=== PATIENT | male | born 1955 | race African-American/Black ===

== ENCOUNTER 2019-04-27 08:55 | Inpatient (IN) | payer SELFPAY ==
[2019-04-27 09:16] VITALS: BMI 28.2
[2019-04-27 10:36] LABS: BASO % 0.8 % (0-2.0); EOS % 4.7 % (0-4.5); HEMOGLOBIN 15.6 GM/dL (11.7-16.9); LYMPH % 24.3 % (8-40); MCH 29.8 pg (25.7-33.7); MCHC 33.2 g/dl (32.0-35.9); MEAN CELL VOLUME 89.9 fl (80-96); MEAN PLT VOLUME 9.2 fl (7.5-11.1); MONO % 10.4 % (3.8-10.2); NEUT % 59.8 % (42.8-82.8); PLATELET COUNT 143 K/MM3 (134-434); RBC 5.22 M/mm3 (4.00-5.60); RDW 14.8 % (11.9-15.9); WHITE BLOOD COUNT 5.9 K/mm3 (4.0-10.0)
[2019-04-27] MEDS: SODIUM CHLORIDE 1,000 ML IV SCH (10:38)
[2019-04-27 11:05] LABS: ALBUMIN 3.8 g/dl (3.4-5.0); BILIRUBIN,TOTAL 0.4 mg/dL (0.2-1); BLOOD UREA NITROGEN 12.6 mg/dL (7-18); CALCIUM 9.3 mg/dL (8.5-10.1); CREATININE 1.2 mg/dL (0.55-1.3); POTASSIUM 3.8 mmol/L (3.5-5.1); TOT PROT 7.8 g/dl (6.4-8.2)
[2019-04-27 11:31] LABS: INR 0.99 (0.83-1.09); PROTHROMBIN TIME (PATIENT) 11.7 SEC (9.7-13.0)
[2019-04-27 11:36] LABS: EPI CELLS 1.7 /HPF (0-5/HPF); HYALINE CASTS 3 /lpf (0-8); URINE APPEARANCE CLEAR; URINE BACTERIA 36.8 /hpf (NEGATIVE); URINE BILIRUBIN NEGATIVE (NEGATIVE); URINE COLOR YELLOW; URINE GLUCOSE (UA) NEGATIVE (NEGATIVE); URINE KETONE NEGATIVE (NEGATIVE); URINE LEUK ESTERASE 2+ (NEGATIVE); URINE NITRITE NEGATIVE (NEGATIVE); URINE PROTEIN NEGATIVE (NEGATIVE); URINE RBC 1 /hpf (0-4); URINE UROBILINOGEN 0.2 mg/dL (0.2-1.0); URINE WBC 20 /hpf (0-5)
[2019-04-27] MEDS ORDERED: CEFTRIAXONE 1,000 MG in DEXTROSE 5%-WATER - 50 ML IVPB ONE (11:48)
[2019-04-27] MEDS ORDERED: CEFTRIAXONE 1 GM/50 ML BAG ONE (12:00)
[2019-04-27 12:10] LABS: COCAINE, UR NEGATIVE ng/ml (CUTOFF=300); METHADONE, UR NEGATIVE ng/ml (CUTOFF=300); OPIATES, URI NEGATIVE ng/ml (CUTOFF=300); PHENCYCLIDINE,URINE NEGATIVE ng/ml (CUTOFF=25); URINE AMPHETAMINES NEGATIVE ng/ml (CUTOFF=500); URINE BARBITURATES NEGATIVE ng/ml (CUTOFF=200); URINE BENZODIAZEPINES NEGATIVE ng/ml (CUTOFF=200)
[2019-04-27] MEDS ORDERED: ATORVASTATIN CA 80 MG TABLET (FP) PO ONE (13:06)
[2019-04-27] MEDS ORDERED: ASPIRIN 325 MG TABLET PO ONE (13:06)
--- NOTE | 2019-04-27 13:21 | EKG ---
Test Reason : Blood Pressure : / mmHG Vent. Rate : 041 BPM Atrial Rate : 041 BPM P-R Int : 234 ms QRS Dur : 094 ms QT Int : 456 ms P-R-T Axes : 015 050 059 degrees QTc Int : 376 ms MARKED SINUS BRADYCARDIA WITH 1ST DEGREE A-V BLOCK MODERATE VOLTAGE CRITERIA FOR LVH, MAY BE NORMAL VARIANT ABNORMAL ECG NO PREVIOUS ECGS AVAILABLE Confirmed by TIA BENNETT MD ([id number]) on 04/27/2019 1:20:47 PM Referred By: Confirmed By:TIA BENNETT MD
--- NOTE | 2019-04-27 13:33 | PDOC ---
Documentation entered by Radha Caceres SCRIBE, acting as scribe for Elise Tao MD. Elise Tao MD: This documentation has been prepared by the Nicki vitale Adrianna, SCRIBE, under my direction and personally reviewed by me in its entirety. I confirm that the documentation accurately reflects all work, treatment, procedures, and medical decision making performed by me. History of Present Illness - General Chief Complaint: Lightheaded Stated Complaint: WEAKNESS Time Seen by Provider: 04/27/19 09:33 - History of Present Illness Initial Comments: The patient is a 64 year old male, with no significant PMH, who presents to the ED for evaluation of weakness for 4 days. Patient notes that since Wednesday, he reports sudden onset weakness and not feeling like himself. Patient notes he feels as if its hard to walk, and he can no longer walk fast. He states he needs to walk with a wide stance to feel steady, as he is wobbly and feels like he is going to fall. He endorses some dizziness, noting that he feels off. He denies any recent falls or hitting his head. Patient denies any history of similar symptoms, and notes he has not seen a primary doctor in over 10 years since he is healthy. Denies fever, chills, chest pain, SOB, nausea, vomit, diarrhea, constipation, dysuria, hematuria, abdominal pain, headache, change in vision, blurred vision, slurred speech. Allergies: NKA, NKDA Surgical History: None reported Social History: Current everyday smoker. PCP: None (has not seen a doctor in over 10 years) Past History - Past Medical History Allergies/Adverse Reactions: Allergies Allergy/AdvReac Type Severity Reaction Status Date / Time No Known Allergies Allergy Verified 04/27/19 09:15 Home Medications: Ambulatory Orders NK [No Known Home Medication] 04/27/19 COPD: No - Immunization History Immunization Up to Date: No - Psycho Social/Smoking Cessation Hx Smoking History: Current every day smoker Have you smoked in the past 12 months: Yes Number of Cigarettes Smoked Daily: 3 Information on smoking cessation initiated: No Hx Alcohol Use: No Drug/Substance Use Hx: No Review of Systems - Review of Systems Comments:: GENERAL/CONSTITUTIONAL: +Weakness. +Not feeling like himself. No fever or chills. HEAD, EYES, EARS, NOSE AND THROAT: No change in vision. No ear pain or discharge. No sore throat. GASTROINTESTINAL: No nausea, vomiting, diarrhea or constipation. GENITOURINARY: No dysuria, frequency, or change in urination. CARDIOVASCULAR: No chest pain or shortness of breath. RESPIRATORY: No cough, wheezing, or hemoptysis. MUSCULOSKELETAL: No joint or muscle swelling or pain. No neck or back pain. SKIN: No rash NEUROLOGIC: +Wobbly gait. +Hard to walk, and feels as if he is going to fall. +Dizziness. No headache, loss of consciousness, or change in strength/sensation. ENDOCRINE: No increased thirst. No abnormal weight change. HEMATOLOGIC/LYMPHATIC: No anemia, easy bleeding, or history of blood clots. ALLERGIC/IMMUNOLOGIC: No hives or skin allergy. *Physical Exam - Vital Signs Last Vital Signs Temp Pulse Resp BP Pulse Ox 98.4 F 55 L 16 129/81 97 04/27/19 09:13 04/27/19 09:13 04/27/19 09:13 04/27/19 09:13 04/27/19 09:13 - Physical Exam Comments: GENERAL: Awake, alert, and fully oriented, in no acute distress HEAD: No signs of trauma EYES: PERRLA, EOMI, sclera anicteric, conjunctiva clear ENT: Auricles normal inspection, hearing grossly normal, nares patent, oropharynx clear without exudates. Moist mucosa NECK: Normal ROM, supple, no lymphadenopathy, JVD, or masses LUNGS: Breath sounds equal, clear to auscultation bilaterally. No wheezes, and no crackles HEART: +Bradycardic but regular to the 50s, normal S1 and S2, no murmurs, rubs or gallops ABDOMEN: Soft, nontender, normoactive bowel sounds. No guarding, no rebound. No masses EXTREMITIES: Normal range of motion, no edema. No clubbing or cyanosis. No cords , erythema, or tenderness BACK: No midline spinal tenderness in cervical/thoracic/lumbar region NEUROLOGICAL: +Wide based ataxic gait. Normal speech, cranial nerves intact, negative pronator drift, 5/5 strength in all 4 extremities, normal sensation to light touch in all 4 extremities, normal reflexes and tone SKIN: Warm, Dry, normal turgor, no rashes or lesions noted. ED Treatment Course - LABORATORY CBC & Chemistry Diagram: 04/27/19 10:24 04/27/19 10:24 - RADIOLOGY Radiology Studies Ordered: Category Date Time Status HEAD CT (STROKE) [CT] Stat CT Scan 04/27/19 09:53 Ordered Radiograph Interpretation: EXAM#: TYPE/EXAM: RESULT: [id number] CT/HEAD CT (STROKE) Cranial CT without contrast Clinical information: evaluate for CVA IMPRESSION: No CT evidence of acute intracranial pathology. Reported By: Que Orozco MD 04/27/19 12:10 - Consult/PCP Case discussed with consulting physician: Juma Jauregui (12:31pm- neuro consult ) Medical Decision Making - Medical Decision Making 04/27/19 10:06 64yo M denies PMH but has not seen PMD in many years presents to the ED with ataxia Vitals unremarkable Exam with wide based ataxic gait NIHSS 2, but pt is out of TPA window Plan for stroke w/u, consider admission for MRI if CTH neg 04/27/19 13:[address] Jauregui, recommends MRI w/o contrast, asa 325, lipitor 80 which has been ordered Case discussed with Dr. Calderon, pt accepted for admission to Dr. Melchor's service Case discussed in detail with admitting physician including history, physical exam and ancillary studies. Admitting physician has assumed care for the patient, will follow all pending diagnostics and will complete the evaluation and treatment. Discharge - Discharge Information Problems reviewed: Yes Clinical Impression/Diagnosis: Ataxia Condition: Stable - Follow up/Referral - Patient Discharge Instructions - Post Discharge Activity NIH Stroke Scale - Last Known Well Date/Time & Onset Date Last Known Well: 04/23/19 - Initial Evaluation Level of consciousness: Alert Ask patient the month and their age: Answers both correctly Ask patient to open & close eyes; make fist and let go: Obeys both correctly Best gaze (horizontal eye movement): Normal Visual field testing: No visual field loss Facial paresis (Show teeth/raise eyebrows/close eyes tight): Normal symmetrical movement Motor Function: Left Arm: Normal Motor Function: Right Arm: Normal (extends arm 90 (or 45) degrees for 10 seconds without drift Motor Function: Left Leg: Normal (extends leg 30 degrees for 5 seconds without drift) Motor Function: Right Leg: Normal (extends leg 30 degrees for 5 seconds without drift) Limb Ataxia: Present in two limbs Sensory(Use pinprick test arms,legs,trunk,face/side to side): Normal Best language (Describe picture, name items, read sentences): No Aphasia Dysarthria (read several words): Normal articulation Extinction and Inattention: No abnormality - Total Score NIH Stroke Scale Score: 2
[2019-04-27] MEDS ORDERED: HEPARIN NA (PORCINE) 5,000 UNITS/ML 1ML VIAL SQ SCH (13:45)
--- NOTE | 2019-04-27 13:50 | HP ---
CHIEF COMPLAINT: dizziness PCP: None HISTORY OF PRESENT ILLNESS: Mr. Huston is a 64 year old man with no reported past medical history. He presented to the ED complaining of 4 days of new onset dizziness. The patient states that he walks 25minutes per day to and from work. About 4 days ago he noticed he was becoming dizzy while walking to work. He stated he felt the world was spinning around him and felt like he was going to fall, but denied any blacking out of vision, falls, or loss of consciousness. The patient states his gait was different when he felt dizzy because he had to walk more carefully so as not to fall but denied any change in sensation in his feet. The patient endorsed feeling nauseated but denied vomiting, sweating, chest palpitations, feeling like his heart beat was too slow, chest pains, or shortness of breath. The patient denied feeling dizzy when changing positions or going from sitting to standing. The patient denied starting any new medications. In the ED the patient was found to have elevated cholesterol levels and an elevated creatinine kinase. The patient denied doing any new or strenuous activity. The UA had 1+RBCs 20 WBCs and 2+ leuk esterase. The patient denied any urinary symptoms including burning with urination or increased frequency. The patient also had a head CT in the ED which did not show any acute pathology. ER course was notable for: (1) EKG with sinus bradycardia (rate 41), 1st degree heart block, [id number] (2) NIHSS 2 (3) Elevated cholesterol (205), LDL (102), creatinine kinase 1763, and an UA with 20 wbcs and +Leuk Esterase Recent Travel: denies PAST MEDICAL HISTORY: denies having any medical problems PAST SURGICAL HISTORY: none reported Social History: Smokin cigarettes per day for >20 years Alcohol: 2 12oz beers per day Drugs: marijuana use daily Allergies No Known Allergies Allergy (Verified 04/27/19 09:15) HOME MEDICATIONS: Home Medications Medication Instructions Recorded NK [No Known Home Medication] 04/27/19 REVIEW OF SYSTEMS CONSTITUTIONAL: dizziness only when walking Absent: fever, chills, diaphoresis, generalized weakness, malaise, loss of appetite, weight change HEENT: world spinning when he walks Absent: rhinorrhea, nasal congestion, throat pain, throat swelling, difficulty swallowing, mouth swelling, ear pain, eye pain, visual changes CARDIOVASCULAR: Absent: chest pain, syncope, palpitations, irregular heart rate, lightheadedness , peripheral edema RESPIRATORY: Absent: cough, shortness of breath, dyspnea with exertion, orthopnea, wheezing, stridor, hemoptysis GASTROINTESTINAL: Absent: abdominal pain, abdominal distension, nausea, vomiting, diarrhea, constipation, melena, hematochezia GENITOURINARY: Absent: dysuria, frequency, urgency, hesitancy, hematuria, flank pain, genital pain MUSCULOSKELETAL: Absent: myalgia, arthralgia, joint swelling, back pain, neck pain SKIN: Absent: rash, itching, pallor HEMATOLOGIC/IMMUNOLOGIC: Absent: easy bleeding, easy bruising, lymphadenopathy, frequent infections ENDOCRINE: Absent: unexplained weight gain, unexplained weight loss, heat intolerance, cold intolerance NEUROLOGIC: dizziness, unsteady gait Absent: headache, focal weakness or paresthesias, seizure, mental status changes , bladder or bowel incontinence PSYCHIATRIC: Absent: anxiety, depression, suicidal or homicidal ideation, hallucinations. PHYSICAL EXAMINATION Vital Signs - 24 hr 04/27/19 04/27/19 04/27/19 09:13 12:10 12:22 Temperature 98.4 F Pulse Rate 55 L Pulse Rate [ 40 L Apical] Respiratory 16 20 Rate Blood Pressure 129/81 Blood Pressure 152/84 [Left Arm] O2 Sat by Pulse 97 100 97 Oximetry (%) GENERAL: Awake, alert, and fully oriented, in no acute distress. NIHSS 0 HEAD: Normal with no signs of trauma. EYES: Pupils equal, round and reactive to light, extraocular movements intact, sclera anicteric, conjunctiva clear. No lid lag. No nystagmus EARS, NOSE, THROAT: Ears normal, nares patent, oropharynx clear without exudates. Moist mucous membranes. NECK: Normal range of motion, supple without lymphadenopathy, JVD, or masses. LUNGS: Breath sounds equal, clear to auscultation bilaterally. No wheezes, and no crackles. No accessory muscle use. HEART/ chest: Regular rhythm, bradycardic, normal S1 and S2 without murmur, rub or gallop. Asymmetry of pectoralis muscle with crease on R side. ABDOMEN: Soft, nontender, not distended, normoactive bowel sounds, no guarding, no rebound, no masses. MUSCULOSKELETAL: Normal range of motion at all joints. No bony deformities or tenderness. No CVA tenderness. Large, fixed, smooth and soft soft tissue mass on L shoulder, patient report's its been there many years. UPPER EXTREMITIES: 2+ pulses, warm, well-perfused. No cyanosis. No clubbing. No peripheral edema. Sensation intact bilaterally, 5/5 strength. LOWER EXTREMITIES: 2+ pulses, warm, well-perfused. No calf tenderness. No peripheral edema. Sensation intcact bilaterally, 5/5 strength. NEUROLOGICAL: Cranial nerves II-XII intact. Normal speech. Normal gait. Patient denied dizziness while walking in ED, coordination while getting out of bed and walking was good. Crystal hallpike maneuver was negative and no nystagmus present. PSYCHIATRIC: Cooperative. Good eye contact. Appropriate mood and affect. SKIN: Warm, dry, normal turgor, no rashes or lesions noted, normal capillary refill. Laboratory Results - last 24 hr 04/27/19 04/27/19 04/27/19 10:24 10:24 10:24 WBC 5.9 RBC 5.22 Hgb 15.6 Hct 47.0 MCV 89.9 MCH 29.8 MCHC 33.2 RDW 14.8 Plt Count 143 MPV 9.2 Absolute Neuts (auto) 3.5 Neutrophils % 59.8 Lymphocytes % 24.3 Monocytes % 10.4 H Eosinophils % 4.7 H Basophils % 0.8 Nucleated RBC % 0 PT with INR INR Sodium 137 Potassium 3.8 Chloride 102 Carbon Dioxide 32 Anion Gap 4 L BUN 12.6 Creatinine 1.2 Est GFR (CKD-EPI)AfAm 74.14 Est GFR (CKD-EPI)NonAf 63.97 Random Glucose 94 Calcium 9.3 Total Bilirubin 0.4 AST 60 H ALT 30 Alkaline Phosphatase 69 Creatine Kinase 1763 H Creatine Kinase Index 0.1 CK-MB (CK-2) 2.9 Troponin I < 0.02 Total Protein 7.8 Albumin 3.8 Triglycerides 50 Cholesterol 205 H Total LDL Cholesterol HDL Cholesterol Urine Color Urine Appearance Urine pH Ur Specific [place] Urine Protein Urine Glucose (UA) Urine Ketones Urine Blood Urine Nitrite Urine Bilirubin Urine Urobilinogen Ur Leukocyte Esterase Urine WBC (Auto) Urine RBC (Auto) Urine Casts (Auto) U Epithel Cells (Auto) Urine Bacteria (Auto) Opiates Screen Methadone Screen Barbiturate Screen Phencyclidine Screen Ur Amphetamines Screen MDMA (Ecstasy) Screen Benzodiazepines Screen Cocaine Screen U Marijuana (THC) Screen Blood Type Antibody Screen 04/27/19 04/27/19 04/27/19 10:24 10:24 10:24 WBC RBC Hgb Hct MCV MCH MCHC RDW Plt Count MPV Absolute Neuts (auto) Neutrophils % Lymphocytes % Monocytes % Eosinophils % Basophils % Nucleated RBC % PT with INR 11.70 INR 0.99 Sodium Potassium Chloride Carbon Dioxide Anion Gap BUN Creatinine Est GFR (CKD-EPI)AfAm Est GFR (CKD-EPI)NonAf Random Glucose Calcium Total Bilirubin AST ALT Alkaline Phosphatase Creatine Kinase Creatine Kinase Index CK-MB (CK-2) Troponin I Total Protein Albumin Triglycerides Cholesterol Total LDL Cholesterol HDL Cholesterol 85 H Urine Color Urine Appearance Urine pH Ur Specific [place] Urine Protein Urine Glucose (UA) Urine Ketones Urine Blood Urine Nitrite Urine Bilirubin Urine Urobilinogen Ur Leukocyte Esterase Urine WBC (Auto) Urine RBC (Auto) Urine Casts (Auto) U Epithel Cells (Auto) Urine Bacteria (Auto) Opiates Screen Methadone Screen Barbiturate Screen Phencyclidine Screen Ur Amphetamines Screen MDMA (Ecstasy) Screen Benzodiazepines Screen Cocaine Screen U Marijuana (THC) Screen Blood Type O POSITIVE Antibody Screen Negative 04/27/19 04/27/19 04/27/19 10:25 10:30 11:48 WBC RBC Hgb Hct MCV MCH MCHC RDW Plt Count MPV Absolute Neuts (auto) Neutrophils % Lymphocytes % Monocytes % Eosinophils % Basophils % Nucleated RBC % PT with INR INR Sodium Potassium Chloride Carbon Dioxide Anion Gap BUN Creatinine Est GFR (CKD-EPI)AfAm Est GFR (CKD-EPI)NonAf Random Glucose Calcium Total Bilirubin AST ALT Alkaline Phosphatase Creatine Kinase Creatine Kinase Index CK-MB (CK-2) Troponin I Total Protein Albumin Triglycerides Cholesterol Total LDL Cholesterol 102 H HDL Cholesterol Urine Color Yellow Urine Appearance Clear Urine pH 6.0 Ur Specific [place] 1.012 Urine Protein Negative Urine Glucose (UA) Negative Urine Ketones Negative Urine Blood Negative Urine Nitrite Negative Urine Bilirubin Negative Urine Urobilinogen 0.2 Ur Leukocyte Esterase 2+ H Urine WBC (Auto) 20 Urine RBC (Auto) 1 Urine Casts (Auto) 3 U Epithel Cells (Auto) 1.7 Urine Bacteria (Auto) 36.8 Opiates Screen Negative Methadone Screen Negative Barbiturate Screen Negative Phencyclidine Screen Negative Ur Amphetamines Screen Negative MDMA (Ecstasy) Screen Negative Benzodiazepines Screen Negative Cocaine Screen Negative U Marijuana (THC) Screen Positive A* Blood Type Antibody Screen ASSESSMENT/PLAN: Mr. Huston is a 64 year old man with no reported past medical history presenting with 4 days of dizziness while walking being admitted for r/o of stroke in the setting of elevated cholesterol and new onset neurological symptoms. 1. Dizziness- must rule out posterior stroke in the setting of new neurological symptoms and elevated LDL. Differential also includes orthostatic hypotension or vestibular neuritis however these are less likely as the patient is only dizzy when walking and doesn't experience any symptoms at rest or with change in position. - head CT without acute pathology or bleed - EKG as above - admit to telemetry, if patient becomes bradycardic to 20s-30s will consult cardiology - obtain orthostatic vital signs - Neurology, Dr. Jauregui, consulted appreciate recommendations - F/U MRI brain - start ASS 325 daily - start Lipitor 80 daily - start meclizine 10 daily - repeat EKG at 7am - repeat labs in AM, trend creatinine kinase - IVF at 42cc/hr 2. UA with 20wbc and leuk esterase - Ceftriaxone given in ED - Patient is asymptomatic, will dc antibiotics at this time FEN: - NS 42cc/hr - monitor, replete prn - cholesterol controlled diet Visit type - Emergency Visit Emergency Visit: Yes ED Registration Date: 04/27/19 Care time: The patient presented to the Emergency Department on the above date and was hospitalized for further evaluation of their emergent condition. - New Patient This patient is new to me today: Yes Date on this admission: 04/27/19 - Critical Care Critical Care patient: No ATTENDING PHYSICIAN STATEMENT I saw and evaluated the patient. I reviewed the resident's note and discussed the case with the resident. I agree with the resident's findings and plan as documented. SUBJECTIVE: OBJECTIVE: ASSESSMENT AND PLAN:
[2019-04-27] MEDS ORDERED: ASPIRIN 81 MG CHEWABLE TABLETS ONE (13:53)
[2019-04-27] MEDS ORDERED: ATORVASTATIN CA 80 MG TABLET (FP) ONE (13:53)
--- NOTE | 2019-04-27 15:38 | PN ---
Teaching Attending Note Name of Resident: Teresita Donovan ATTENDING PHYSICIAN STATEMENT I saw and evaluated the patient. I reviewed the resident's note and discussed the case with the resident. I agree with the resident's findings and plan as documented. SUBJECTIVE: CC: vertigo HPI: 64 y/o man with no known PMH who presented with vertigo. vertigo started 4 days ago, it happens during walking. has unsteady gait x 4 days. No sx at rest or while in bed. No N/V . No ear ringing. no weakness, numbness or tingling. no previous episodes. No new meds. no falls or head trauma He denies any palpitations . No CP or SOB. walks to and from work x 25 min daily In ER, he was found to be bradycardic to 40s and pacer pads were placed OBJECTIVE: NAD, awake, alert , oriented. MMM, no facial droop, no LAP in neck . CV: regular rhythm, robert, ? 2/6 murmur in RUSB. Lungs: CTAB Ext: no edema or erythema. has fungal infection in R 3rd interdigital space, and R 4th interdigital space. Neuro: EOMI, round equal pupils, reactive to light , no facial droop. strength 5 /5 in upper and lower extremities proximally and distally. sensation to light touch nl. reflexes 2+ knee jerk , 1+ biceps b/l. Skin: multiple nodules , different sizes, KL shoulder, , upper and lower back, abd . Breasts , no masses , no skin erythema or eczema , no LAP in axillary areas ASSESSMENT AND PLAN: 64 y/o man with no known PMH who presented with vertigo. he was found to have bradycardia. 1- Vertigo: not celar of the etiology. Kill Buck Halpike per resident neg. gait examined and was nL. sx resolved now. need to r/o posterior stroke. ? bradycardia as a cause. - MRI - monitor - add meclizine - tele 2- Bradycardia: sinus on EKG and has 1st degree AV block. while examining the patient HR dropped to 30s briefly with no sx . - card consult - repeat EKG in am - tele 3- DVT Px
--- NOTE | 2019-04-27 17:48 | CON.NEURO ---
Consult - History of Present Illness History of Present Illness: 64 year old man with no reported past medical history. He presented to the ED complaining of 4 days of new onset dizziness. The patient states that he walks 25minutes per day to and from work. About 4 days ago he noticed he was becoming dizzy while walking to work. He stated he felt the world was spinning around him and felt like he was going to fall, but denied any blacking out of vision, falls, or loss of consciousness. The patient states his gait was different when he felt dizzy because he had to walk more carefully so as not to fall but denied any change in sensation in his feet. The patient endorsed feeling nauseated but denied vomiting, sweating, chest palpitations, feeling like his heart beat was too slow, chest pains, or shortness of breath. The patient denied feeling dizzy when changing positions or going from sitting to standing. The patient denied starting any new medications. now states he feels fine and no complaints UA 1+RBCs 20 WBCs and 2+ leuk esterase. CT HD (-) elevated CPK, + marijuana screen , drinks 2 beers a day, +Smokes cigarettes 8 /day - Alcohol/Substance Use Hx Alcohol Use: No - Smoking History Smoking history: Current every day smoker Have you smoked in the past 12 months: Yes Aproximately how many cigarettes per day: 3 Home Medications - Allergies Allergies/Adverse Reactions: Allergies Allergy/AdvReac Type Severity Reaction Status Date / Time No Known Allergies Allergy Verified 04/27/19 09:15 - Home Medications Home Medications: Ambulatory Orders NK [No Known Home Medication] 04/27/19 Physical Exam-Neuro Vital Signs: Vital Signs Temperature 98.4 F 04/27/19 09:13 Pulse Rate 39 L 04/27/19 15:13 Respiratory Rate 20 04/27/19 15:13 Blood Pressure 168/81 04/27/19 15:13 O2 Sat by Pulse Oximetry (%) 99 04/27/19 15:13 Labs: CBC, BMP 04/27/19 10:24 04/27/19 10:24 INR, PTT INR 0.99 (0.83-1.09) 04/27/19 10:24 - Neuro Exam Level Of Consciousness: Yes: Alert, Oriented to Person (eomi, no facila, motor 5 /5, reflxes NL , no ataxia ) Imaging - Results Cat Scan: Report Reviewed, Image Reviewed Problem List - Problems (1) Vertigo due to cerebrovascular disease Code(s): R42 - DIZZINESS AND GIDDINESS (2) Vertigo Code(s): R42 - DIZZINESS AND GIDDINESS Assessment/Plan 64 year old man with no reported past medical history. He presented to the ED complaining of 4 days of new onset dizziness. The patient states that he walks 25minutes per day to and from work. About 4 days ago he noticed he was becoming dizzy while walking to work. He stated he felt the world was spinning around him and felt like he was going to fall, but denied any blacking out of vision, falls, or loss of consciousness. The patient states his gait was different when he felt dizzy because he had to walk more carefully so as not to fall but denied any change in sensation in his feet. The patient endorsed feeling nauseated but denied vomiting, sweating, chest palpitations, feeling like his heart beat was too slow, chest pains, or shortness of breath. The patient denied feeling dizzy when changing positions or going from sitting to standing. The patient denied starting any new medications. now states he feels fine and no complaints UA 1+RBCs 20 WBCs and 2+ leuk esterase. CT HD (-) elevated CPK, + marijuana screen , drinks 2 beers a day, +Smokes cigarettes 8 /day AP : Transient vertigo-multiple vascular RF , ? if related to UTI check MRI to ensure not TIA check Doppler carotid FU CPK smoking ETOH cessation DR MAY
[2019-04-27] MEDS: HEPARIN NA (PORCINE) 5,000 UNITS/ML 1ML VIAL SQ SCH (22:26)
[2019-04-28] MEDS: HEPARIN NA (PORCINE) 5,000 UNITS/ML 1ML VIAL SQ SCH ×3 (06:16→21:03)
[2019-04-28 07:57] LABS: BASO % 1.2 % (0-2.0); EOS % 4.8 % (0-4.5); LYMPH % 31.7 % (8-40); MCH 30.3 pg (25.7-33.7); MCHC 34.1 g/dl (32.0-35.9); MEAN CELL VOLUME 88.8 fl (80-96); MEAN PLT VOLUME 9.3 fl (7.5-11.1); MONO % 10.6 % (3.8-10.2); NEUT % 51.7 % (42.8-82.8); PLATELET COUNT 135 K/MM3 (134-434); RBC 4.95 M/mm3 (4.00-5.60); RDW 14.7 % (11.9-15.9); WHITE BLOOD COUNT 5.9 K/mm3 (4.0-10.0)
[2019-04-28 08:33] LABS: ALBUMIN 3.2 g/dl (3.4-5.0); BILIRUBIN,TOTAL 0.6 mg/dL (0.2-1); CALCIUM 8.6 mg/dL (8.5-10.1); MAGNESIUM 1.8 mg/dL (1.8-2.4); PHOSPHOROUS 2.8 mg/dL (2.5-4.9); POTASSIUM 3.7 mmol/L (3.5-5.1); TOT PROT 6.7 g/dl (6.4-8.2)
[2019-04-28] MEDS ORDERED: FLU VACCINE QUAD 60 MCG/0.5 ML (MDV 19-20) IM ONE (09:00)
--- NOTE | 2019-04-28 10:03 | PN ---
Progress Note (short form) - Note Progress Note: 64 year old man with no reported past medical history. He presented to the ED complaining of 4 days of new onset dizziness. The patient states that he walks 25minutes per day to and from work. About 4 days ago he noticed he was becoming dizzy while walking to work. He stated he felt the world was spinning around him and felt like he was going to fall, but denied any blacking out of vision, falls, or loss of consciousness. The patient states his gait was different when he felt dizzy because he had to walk more carefully so as not to fall but denied any change in sensation in his feet. The patient endorsed feeling nauseated but denied vomiting, sweating, chest palpitations, feeling like his heart beat was too slow, chest pains, or shortness of breath. The patient denied feeling dizzy when changing positions or going from sitting to standing. The patient denied starting any new medications. now states he feels fine and no complaints UA 1+RBCs 20 WBCs and 2+ leuk esterase. CT HD (-) elevated CPK, + marijuana screen , drinks 2 beers a day, +Smokes cigarettes 8 /day FU : sx resolved Doppler (-) MRI (-) for acute stroke , + white matter changes - Alcohol/Substance Use Hx Alcohol Use: No - Smoking History Smoking history: Current every day smoker Have you smoked in the past 12 months: Yes Aproximately how many cigarettes per day: 3 Home Medications - Allergies Allergies/Adverse Reactions: Allergies Allergy/AdvReac Type Severity Reaction Status Date / Time No Known Allergies Allergy Verified 04/27/19 09:15 - Home Medications Home Medications: Ambulatory Orders NK [No Known Home Medication] 04/27/19 Physical Exam-Neuro Vital Signs: Vital Signs Temperature 98.4 F 04/28/19 02:00 Pulse Rate 97 H 04/28/19 02:00 Respiratory Rate 20 04/28/19 02:00 Blood Pressure 133/91 04/28/19 02:00 O2 Sat by Pulse Oximetry (%) 97 04/27/19 20:00 CBC, BMP 04/27/19 10:24 04/27/19 10:24 INR, PTT INR 0.99 (0.83-1.09) 04/27/19 10:24 - Neuro Exam Level Of Consciousness: Yes: Alert, Oriented to Person (eomi, no facila, motor 5 /5, reflxes NL , no ataxia ) Imaging - Results Cat Scan: Report Reviewed, Image Reviewed Problem List - Problems (1) Vertigo due to cerebrovascular disease Code(s): R42 - DIZZINESS AND GIDDINESS (2) Vertigo Code(s): R42 - DIZZINESS AND GIDDINESS Assessment/Plan 64 year old man with no reported past medical history. He presented to the ED complaining of 4 days of new onset dizziness. The patient states that he walks 25minutes per day to and from work. About 4 days ago he noticed he was becoming dizzy while walking to work. He stated he felt the world was spinning around him and felt like he was going to fall, but denied any blacking out of vision, falls, or loss of consciousness. The patient states his gait was different when he felt dizzy because he had to walk more carefully so as not to fall but denied any change in sensation in his feet. The patient endorsed feeling nauseated but denied vomiting, sweating, chest palpitations, feeling like his heart beat was too slow, chest pains, or shortness of breath. The patient denied feeling dizzy when changing positions or going from sitting to standing. The patient denied starting any new medications. now states he feels fine and no complaints UA 1+RBCs 20 WBCs and 2+ leuk esterase. CT HD (-) elevated CPK, + marijuana screen , drinks 2 beers a day, +Smokes cigarettes 8 /day AP : Transient vertigo-multiple vascular RF , ? if related to UTI Doppler carotid (-) FU CPK smoking ETOH cessation MRI (-) for acute event can Dc home form neuro standpoint DR MAY Problem List - Problems (1) Vertigo due to cerebrovascular disease Code(s): R42 - DIZZINESS AND GIDDINESS (2) Vertigo Code(s): R42 - DIZZINESS AND GIDDINESS
[2019-04-28] MEDS: SODIUM CHLORIDE 1,000 ML IV SCH (10:18)
--- NOTE | 2019-04-28 10:27 | CON.CARD ---
Consult Consult Specialty:: Cardiology Referred by:: Dr. Melchor Reason for Consultation:: Dizziness - History of Present Illness Chief Complaint: dizziness History of Present Illness: 64M admitted with dizziness: he reports the room was spinning when he walked. Denies palps, cp, sob. CT neg; MRI brain pending. Denies prior cardiac hx. ECG shows marked sinus robert, 1st degree AV block. Tele: sinus robert - History Source History Provided By: Patient - Past Medical History [employer]: No: Alzheimer's, CVA, Dementia, Migraine, Multiple Sclerosis, Peripheral Neuropathy, Parkinson's, Seizure, Syncope, TIA, Vertigo, Other Cardio/Vascular: No: AFIB, Aneurysm, Aortic Insufficiency, Aortic Stenosis, CAD , CHF, Deep Vein Thrombosis, HTN, Hyperlipdemia, AK, Mitral Insufficiency, Mitral Stenosis, Murmur, Pulmonary Hypertension, Other Pulmonary: No: Asthma, Bronchitis, Cancer, COPD, O2 Dependent, Pneumonia, Previously Intubated, Pulmonary Embolus, Pulmonary Fibrosis, Sleep Apnea, Other Gastrointestinal: No: Ascites, Cancer, Constipation, Crohn's Disease, Diverticulitis, Diverticulosis, Esophageal Varices, Gastritis, GERD, GI Bleed, Hemorrhoids, Hiatal Hernia, Inflamatory Bowel Disease, Irritable Bowel Disease, Pancreatitis, Peptic Ulcer Disease, Ulcerative Colitis, Other Hepatobiliary: No: Cirrhosis, Cholelithiasis, Cholecystitis, Choledocholithiasis , Hepatitis A, Hepatitis B, Hepatitis C, Other Renal/: No: Renal Failure, Renal Inusuff, BPH, Cancer, Hematuria, Hemodialysis , Neurogenic Bladder, Renal Calculi, UTI, Other Heme/Onc: No: Anemia, B12 Deficiency, Bleeding Disorder, Cancer, Current Chemotherapy, Current Radiation Therapy, Hemochromatosis, Hypercoaguable State, Myeloproliferative Synd, Sickle Cell Disease, Sickle Cell Trait, Thrombocytopenia, Other Infectious Disease: No: AIDS, C-Diff, Herpes Zoster, HIV, MRSA, STD's, Tuberculosis, VREF, Other Psych: No: Addictions, Anxiety, Bipolar, Depression, Panic, Psychosis, Schizophrenia, Other Musculoskeletal: No: Bursitis, Chronic low back pain, Hemiparesis, Hemiplegia, Osteoarthritis, Paraplegia, Other Rheumatology: No: Fibromyalgia, Gout, Lupus, Rheumatoid Arthritis, Sarcoidosis, Vasculitis, Other ENT: No: Allergic Rhinitis, Sinusitis, Other Endocrine: No: Fannin's Disease, [place]'s Disease, Diabetes Insipidus, Diabetes Mellitus, Hyperparathyroidism, Hyperthyroidism, Hypothyroidism, Osteopenia, SIADH, Other Dermatology: No: Basal Cell, Cellulitis, Eczema, Melanoma, Psoriasis, Squamous Cell, Other - Past Surgical History Past Surgical History: No: None, AAA Repair, AICD, Amputation, Appendectomy, Arthrosocopy, AV Fistula/Graft, Bariatric Surgery, Breast Biopsy, Bypass, CABG, Carotid Endarterectomy, Cataract Removal, Cholecystectomy, Colectomy, Colonoscopy, Colostomy, Craniotomy, , Cystectomy, Hernia Repair, Hysterectomy, Ileal Conduit, Ileosotomy, Joint Replacement, Kidney Transplant, Laminectomy, Liver Transplant, Mastectomy, Nephrectomy, Oopherectomy, Orchiectomy, Permanent Pacemaker, Prostatectomy, Splenectomy, Stent, Thoracotomy , TURP, Tonsillectomy, Tubal Ligation, Upper Endoscopy, Valve Replacement, Vasectomy, Vein Stripping/Ligation - Alcohol/Substance Use Hx Alcohol Use: No - Smoking History Smoking history: Current every day smoker Have you smoked in the past 12 months: Yes Aproximately how many cigarettes per day: 3 - Social History History of Recent Travel: No Home Medications - Allergies Allergies/Adverse Reactions: Allergies Allergy/AdvReac Type Severity Reaction Status Date / Time No Known Allergies Allergy Verified 04/27/19 09:15 - Home Medications Home Medications: Ambulatory Orders NK [No Known Home Medication] 04/27/19 Family Medical History Family History: Unremarkable Review of Systems - Review of Systems Constitutional: reports: No Symptoms Eyes: reports: No Symptoms HENT: reports: No Symptoms Neck: reports: No Symptoms Cardiovascular: reports: No Symptoms Respiratory: reports: No Symptoms Gastrointestinal: reports: No Symptoms Genitourinary: reports: No Symptoms Breasts: reports: No Symptoms Reported Musculoskeletal: reports: No Symptoms Neurological: reports: Dizziness Endocrine: denies: No Symptoms, Excessive Sweating, Flushing, Increased Hunger, Increased Thirst, Intolerance to Cold, Intolerance to Heat, Unexplained Weight Gain, Unexplained Weight Loss, Other Hematology/Lymphatic: denies: No Symptoms, Easily Bruised, Excessive Bleeding, Swollen Glands, Other Psychiatric: denies: No Symptoms, Altered Sleep Pattern, Anxiety, Depression, Hallucinations, Panic, Paranoia, Suicidal, Other - Risk Factors Known Risk Factors: Yes: Hypercholesterolemia Vital Signs: Vital Signs Temperature 98.4 F 04/28/19 02:00 Pulse Rate 97 H 10/18/19 02:00 Respiratory Rate 20 04/28/19 02:00 Blood Pressure 133/91 04/28/19 02:00 O2 Sat by Pulse Oximetry (%) 97 04/27/19 20:00 Constitutional: Yes: No Distress Neck: Yes: Trachea Midline Respiratory: Yes: CTA Bilaterally Gastrointestinal: Yes: Soft Cardiovascular: Yes: Regular Rate and Rhythm JVD: No Carotid Bruit: No PMI: Non-Displaced Heart Sounds: Yes: S1, S2 (rrr) Edema: No Neurological: Yes: Alert, Oriented ...Motor Strength: WNL - Other Data Labs, Other Data: CBC, BMP 04/28/19 07:35 04/28/19 07:35 INR, PTT INR 0.99 (0.83-1.09) 04/27/19 10:24 Troponin, BNP 04/27/19 10:24 Troponin I < 0.02 Troponin, BNP 04/27/19 10:24 Troponin I < 0.02 Marked sinus robert 41bpm. 1st degree AV block, cannot r/o septal AK, age indet Echo: Pending Imaging - Results Cat Scan: Report Reviewed EKG: Image Reviewed Assessment/Plan IMP: Dizziness, now resolved. Sinus bradycardia, 1st degree AV block Possible vertigo: sx now resolved and he remains relatively bradycardic (may be incidental to symptoms). REC: 1. Echo 2. Check TSH 3. Avoid AV avni agents. 4. F/u MRI 5. If MRI is negative and he remains asx and ambulating without symptoms, then dispo as per Neuro. Can have further cardiac work up including stress test for chronotropic competence and extended holter as as outpt.
--- NOTE | 2019-04-28 15:10 | ECHO ---
Name: LESLIE MCCORMICK Exam:Adult Echocardiogram Study Date: 04/28/2019 08:57 AM Age: 64 yrs Reason For Study: DIZZINESS Height: 66 in Weight: 175 lb BSA: 1.9 m2 MMode/2D Measurements & Calculations IVSd: 1.1 cm Ao root diam: 3.3 cm LVIDd: 4.7 cm LA dimension: 2.6 cm LVIDs: 3.0 cm LVPWd: 1.3 cm LVPWs: 1.4 cm EDV(Teich): 100.4 ml ESV(Teich): 36.1 ml LVOT diam: 2.2 cm Doppler Measurements & Calculations MV E max davin: 76.5 cm/sec Ao V2 max: 158.1 cm/sec MV A max davin: 52.8 cm/sec Ao max P.0 mmHg MV E/A: 1.4 Ao V2 mean: 98.1 cm/sec MV dec time: 0.19 sec Ao mean P.7 mmHg Ao V2 VTI: 30.0 cm BARBARA(I,D): 3.6 cm2 AI P1/2t: 938.7 msec BARBARA(V,D): 3.4 cm2 AI max davin: 308.4 cm/sec LV V1 max P.5 mmHg AI max P.0 mmHg LV V1 mean P.2 mmHg AI dec slope: 96.2 cm/sec2 LV V1 max: 137.2 cm/sec LV V1 mean: 81.4 cm/sec LV V1 VTI: 28.1 cm SV(LVOT): 108.5 ml TR max davin: 205.2 cm/sec TR max P.8 mmHg PA V2 max: 93.9 cm/sec Med Peak E' Davin: 5.8 cm/sec PA max P.5 mmHg Med E/e': 13.2 Lat Peak E' Davin: 9.9 cm/sec Lat E/e': 7.8 Left Ventricle Left ventricular systolic function is normal. Ejection Fraction = 55-60%. Right Ventricle The right ventricle is normal in size and function. Atria Normal left and right atrial size and function. Mitral Valve The mitral valve is normal in structure and function. There is no mitral valve stenosis. There is mil d mitral regurgitation. Tricuspid Valve The tricuspid valve is normal in structure and function. Aortic Valve There is mild aortic sclerosis.;. No hemodynamically significant valvular aortic stenosis. Mild aorti c regurgitation. Pulmonic Valve The pulmonic valve is not well seen, but is grossly normal. There is no pulmonic valvular stenosis. Great Vessels The aortic root is normal size. Pericardium/Pleura There is no pericardial effusion. Interpretation Summary Sinus bradycardia during the exam. Left ventricular systolic function is normal. Ejection Fraction = 55-60%. There is mild mitral regurgitation. There is mild aortic sclerosis.; Mild aortic regurgitation. There is no pericardial effusion. Sinus bradycardia during the exam. MD Esqueda *Vipin 04/28/2019 11:14 AM
--- NOTE | 2019-04-28 17:43 | PN ---
Physical Exam: SUBJECTIVE: Patient seen and examined at the bedside, there were no acute events overnight. OBJECTIVE: Vital Signs Period Temp Pulse Resp BP Sys/Wilson Pulse Ox Last 24 Hr 98 F-98.5 F 37-97 18-20 120-161/63-91 97-97 GENERAL: Awake, alert, and fully oriented, in no acute distress. NIHSS 0 HEAD: Normal with no signs of trauma. EYES: Pupils equal, round and reactive to light, extraocular movements intact, sclera anicteric, conjunctiva clear. No lid lag. No nystagmus EARS, NOSE, THROAT: Ears normal, nares patent, oropharynx clear without exudates. Moist mucous membranes. NECK: Normal range of motion, supple without lymphadenopathy, JVD, or masses. LUNGS: Breath sounds equal, clear to auscultation bilaterally. No wheezes, and no crackles. No accessory muscle use. HEART/ chest: Regular rhythm, bradycardic, normal S1 and S2 without murmur, rub or gallop. Asymmetry of pectoralis muscle with crease on R side. ABDOMEN: Soft, nontender, not distended, normoactive bowel sounds, no guarding, no rebound, no masses. MUSCULOSKELETAL: Normal range of motion at all joints. No bony deformities or tenderness. No CVA tenderness. Large, fixed, smooth and soft soft tissue mass on L shoulder, patient report's its been there many years. UPPER EXTREMITIES: 2+ pulses, warm, well-perfused. No cyanosis. No clubbing. No peripheral edema. Sensation intact bilaterally, 5/5 strength. LOWER EXTREMITIES: 2+ pulses, warm, well-perfused. No calf tenderness. No peripheral edema. Sensation intcact bilaterally, 5/5 strength. NEUROLOGICAL: Cranial nerves II-XII intact. Normal speech. Normal gait. Patient denied dizziness while walking in ED, coordination while getting out of bed and walking was good. Moore hallpike maneuver was negative and no nystagmus present. PSYCHIATRIC: Cooperative. Good eye contact. Appropriate mood and affect. SKIN: Warm, dry, normal turgor, no rashes or lesions noted, normal capillary refill. Laboratory Results - last 24 hr 04/28/19 04/28/19 04/28/19 07:35 07:35 07:35 WBC 5.9 RBC 4.95 Hgb 15.0 Hct 44.0 MCV 88.8 MCH 30.3 MCHC 34.1 RDW 14.7 Plt Count 135 MPV 9.3 Absolute Neuts (auto) 3.1 Neutrophils % 51.7 Lymphocytes % 31.7 D Monocytes % 10.6 H Eosinophils % 4.8 H Basophils % 1.2 Nucleated RBC % 0 Sodium 138 Potassium 3.7 Chloride 105 Carbon Dioxide 27 Anion Gap 6 L BUN 14.0 Creatinine 1.0 Est GFR (CKD-EPI)AfAm 92.42 Est GFR (CKD-EPI)NonAf 79.75 Random Glucose 101 Hemoglobin A1c % 5.7 Calcium 8.6 Phosphorus 2.8 Magnesium 1.8 Total Bilirubin 0.6 AST 46 H ALT 27 Alkaline Phosphatase 59 Creatine Kinase 1203 H Creatine Kinase Index 0.1 CK-MB (CK-2) 1.6 Total Protein 6.7 Albumin 3.2 L TSH 0.57 Active Medications Generic Name Dose Route Start Last Admin Trade Name Freq PRN Reason Stop Dose Admin Heparin Sodium (Porcine) 5,000 unit 04/27/19 22:00 04/28/19 13:19 Heparin - SQ 5,000 unit TID JAZMYNE Administration Sodium Chloride 1,000 mls @ 42 mls/hr 04/27/19 10:00 04/28/19 10:18 Normal Saline - IV 42 mls/hr ASDIR JAZMYNE Administration ASSESSMENT/PLAN: Mr. Huston is a 64 year old man with no reported past medical history presenting with 4 days of dizziness while walking being admitted for r/o of stroke in the setting of elevated cholesterol and new onset neurological symptoms. 1. Dizziness- uncler etiology, resolved - head CT without acute pathology or bleed - MRI negative - obtain orthostatic vital signs - tele without arrhythmias - Neurology, Dr. Jauregui, consulted appreciate recommendations 2. Bradycardia: sinus with 1st degree AV block - no arrythmias noted on tele - Cardiology consulted, , appreciate recommendations 3. Hyperlipidemia: needs statin as 10y ris of CAD is 8.5% but will hold for now in light of elevated CPK - recommend follow up with PCP as outpatient 4. Elevated CPK- mild rhabdo - continue with oral hydration FEN: - monitor, replete prn - cholesterol controlled diet Dispo: f/u in residents clinic and with cardiology as outpatient Visit type - Emergency Visit Emergency Visit: Yes ED Registration Date: 04/27/19 Care time: The patient presented to the Emergency Department on the above date and was hospitalized for further evaluation of their emergent condition. - New Patient This patient is new to me today: No - Critical Care Critical Care patient: No - Discharge Referral Referred to [facility] Med P.C.: No ATTENDING PHYSICIAN STATEMENT I saw and evaluated the patient. I reviewed the resident's note and discussed the case with the resident. I agree with the resident's findings and plan as documented. SUBJECTIVE: OBJECTIVE: ASSESSMENT AND PLAN:
--- NOTE | 2019-04-28 18:18 | PN ---
Progress Note (short form) - Note Progress Note: Resident inquired about tele strip 04/27 at 18:15:31: ? Mobitz II Strips reviewed by me again; sinus robert with blocked APCs on beats 1, 5 and 7. Does not look like Mobitz 2 Strips sent to EP Dr. Craft at [facility] for review who agrees that this represents sinus robert w/ probably blocked APCs and not c/w Mobitz 2.
--- NOTE | 2019-04-28 19:19 | PN ---
Teaching Attending Note Name of Resident: Omar Luna ATTENDING PHYSICIAN STATEMENT I saw and evaluated the patient. I reviewed the resident's note and discussed the case with the resident. I agree with the resident's findings and plan as documented. SUBJECTIVE: no pain, dizziness, or gait abnormalities OBJECTIVE: NAD, awake, alert , oriented. CV: regular rhythm, robert, ? 2/6 murmur in RUSB. Lungs: CTAB Ext: no edema or erythema. ASSESSMENT AND PLAN: 64 y/o man with no known PMH who presented with vertigo. he was found to have bradycardia. 1- Vertigo: not clear of the etiology. resolved . MRI neg tele with no arrhythmias 2- Bradycardia: sinus with 1st degree AV block tele reviewed and strips were reviewed with Dr. Lew, who did not indicate any arrhythmias 3- Hyperlipidemia. need statin therapy as his 10 yr risk for CAd is 8.5 %. but will hold of now as he has elevated CPK 4- Elevated CPK. ? milf rhabdo. oral hydration f/u with resident's clinic and card
[2019-04-29] MEDS: HEPARIN NA (PORCINE) 5,000 UNITS/ML 1ML VIAL SQ SCH (06:53)
[2019-04-29 08:59] VITALS: BP 148/89; PULSE 48; TEMP 98
--- NOTE | 2019-04-29 11:32 | PN ---
Progress Note (short form) - Note Progress Note: s: no cp sob palps dizzy o: Vital Signs Period Temp Pulse Resp BP Sys/Wilson Pulse Ox Last 24 Hr 98 F-98.4 F 37-48 18-20 113-160/77-91 95-98 Constitutional: Yes: No Distress Neck: Yes: Trachea Midline Respiratory: Yes: CTA Bilaterally Gastrointestinal: Yes: Soft Cardiovascular: Yes: Regular Rate and Rhythm JVD: No Carotid Bruit: No PMI: Non-Displaced Heart Sounds: Yes: S1, S2 (rrr) Edema: No Neurological: Yes: Alert, Oriented Current Medications Generic Name Dose Route Start Last Admin Trade Name Freq PRN Reason Stop Dose Admin Heparin Sodium (Porcine) 5,000 unit 04/27/19 22:00 04/29/19 06:53 Heparin - SQ 5,000 unit TID JAZMYNE Administration Sodium Chloride 1,000 mls @ 42 mls/hr 04/27/19 10:00 04/28/19 10:18 Normal Saline - IV 42 mls/hr ASDIR JAZMYNE Administration CBC, BMP 04/28/19 07:35 04/28/19 07:35 tele: sr Imaging - Results Cat Scan: Report Reviewed EKG: Image Reviewed Assessment/Plan IMP: Dizziness, now resolved. Sinus bradycardia, 1st degree AV block Possible vertigo: sx now resolved and he remains relatively bradycardic (may be incidental to symptoms). REC: 1. Echo benign here 3. Avoid AV avni agents. 5. If MRI is negative and he remains asx and ambulating without symptoms, then dispo as per Neuro. Can have further cardiac work up including stress test for chronotropic competence and extended holter as as outpt.
--- NOTE | 2019-04-29 15:53 | PN ---
Teaching Attending Note Name of Resident: Omar Luna ATTENDING PHYSICIAN STATEMENT I saw and evaluated the patient. I reviewed the resident's note and discussed the case with the resident. I agree with the resident's findings and plan as documented. SUBJECTIVE: no pain , dizziness, or SOB . No problem with walking OBJECTIVE: NAD, awake, alert, oriented. CV: regular rhythm, HR 40-50s , ? 2/6 murmur in RUSB. Lungs: CTAB Ext: no edema or erythema. ASSESSMENT AND PLAN: 64 y/o man with no known PMH who presented with vertigo. he was found to have bradycardia. 1- Vertigo: not clear of the etiology. Resolved. MRI neg tele with no arrhythmias again today 2- Bradycardia: sinus with 1st degree AV block f/u with card as outpt 3- Hyperlipidemia. Need statin therapy as his 10 yr risk for CAd is 8.5 %. but will hold of now as he has elevated CPK 4- Elevated CPK. ? mild rhabdo. oral hydration f/u with resident's clinic and card
--- NOTE | 2019-05-08 19:42 | DS ---
Physical Exam: SUBJECTIVE: Patient seen and examined at the bedside, there were no acute events overnight OBJECTIVE: Last Vital Signs Temp Pulse Resp BP Pulse Ox 98 F 48 L 18 148/89 98 04/29/19 08:58 04/29/19 08:58 04/29/19 08:58 04/29/19 08:58 04/29/19 09:00 PHYSICAL EXAM NAD, awake, alert, oriented. CV: regular rhythm, HR 40-50s , ? 2/6 murmur in RUSB. Lungs: CTAB Ext: no edema or erythema. LABS CBC,CMP WBC 5.9 K/mm3 (4.0-10.0) 04/28/19 07:35 RBC 4.95 M/mm3 (4.00-5.60) 04/28/19 07:35 Hgb 15.0 GM/dL (11.7-16.9) 04/28/19 07:35 Hct 44.0 % (35.4-49) 04/28/19 07:35 MCV 88.8 fl (80-96) 04/28/19 07:35 MCH 30.3 pg (25.7-33.7) 04/28/19 07:35 MCHC 34.1 g/dl (32.0-35.9) 04/28/19 07:35 RDW 14.7 % (11.9-15.9) 04/28/19 07:35 Plt Count 135 K/MM3 (134-434) 04/28/19 07:35 MPV 9.3 fl (7.5-11.1) 04/28/19 07:35 Absolute Neuts (auto) 3.1 K/mm3 (1.5-8.0) 04/28/19 07:35 Neutrophils % 51.7 % (42.8-82.8) 04/28/19 07:35 Lymphocytes % 31.7 % (8-40) D 04/28/19 07:35 Monocytes % 10.6 % (3.8-10.2) H 04/28/19 07:35 Eosinophils % 4.8 % (0-4.5) H 04/28/19 07:35 Basophils % 1.2 % (0-2.0) 04/28/19 07:35 Nucleated RBC % 0 % (0-0) 04/28/19 07:35 Sodium 138 mmol/L (136-145) 04/28/19 07:35 Potassium 3.7 mmol/L (3.5-5.1) 04/28/19 07:35 Chloride 105 mmol/L (98-107) 04/28/19 07:35 Carbon Dioxide 27 mmol/L (21-32) 04/28/19 07:35 Anion Gap 6 MMOL/L (8-16) L 04/28/19 07:35 BUN 14.0 mg/dL (7-18) 04/28/19 07:35 Creatinine 1.0 mg/dL (0.55-1.3) 04/28/19 07:35 Est GFR (CKD-EPI)AfAm 92.42 04/28/19 07:35 Est GFR (CKD-EPI)NonAf 79.75 04/28/19 07:35 Random Glucose 101 mg/dL (74-106) 04/28/19 07:35 Hemoglobin A1c % 5.7 % (4.2-6.3) 04/28/19 07:35 Calcium 8.6 mg/dL (8.5-10.1) 04/28/19 07:35 Phosphorus 2.8 mg/dL (2.5-4.9) 04/28/19 07:35 Magnesium 1.8 mg/dL (1.8-2.4) 04/28/19 07:35 Total Bilirubin 0.6 mg/dL (0.2-1) 04/28/19 07:35 AST 46 U/L (15-37) H 04/28/19 07:35 ALT 27 U/L (13-61) 04/28/19 07:35 Alkaline Phosphatase 59 U/L (45-117) 04/28/19 07:35 Creatine Kinase 1203 U/L (26-308) H 04/28/19 07:35 Creatine Kinase Index 0.1 % (0.0-5.0) 04/28/19 07:35 CK-MB (CK-2) 1.6 ng/mL (0.5-3.6) 04/28/19 07:35 Troponin I < 0.02 ng/ml (0.00-0.05) 04/27/19 10:24 Total Protein 6.7 g/dl (6.4-8.2) 04/28/19 07:35 Albumin 3.2 g/dl (3.4-5.0) L 04/28/19 07:35 Triglycerides 50 mg/dL (0-150) 04/27/19 10:24 Cholesterol 205 mg/dL (50-200) H 04/27/19 10:24 Total LDL Cholesterol 102 mg/dL (5-100) H 04/27/19 10:25 HDL Cholesterol 85 mg/dL (40-60) H 04/27/19 10:24 TSH 0.57 uIU/ml (0.358-3.74) 04/28/19 07:35 HOSPITAL COURSE: Date of Admission:04/27/19 Mr. Huston is a 64 year old man with no reported past medical history who presented to the ED with 4 days of dizziness while walking being admitted for r/ o of stroke in the setting of elevated cholesterol and new onset neurological symptoms. Work up included rule out posterior stroke in the setting of new neurological symptoms and elevated LDL. Nerology was consulted and head CT was performed. The patient did not have acute pathology or bleed. An MRI, did not reveal any evidence of stroke or other acute pathology. EKG as with bradycardia but no arrhythmias. Because the patient was becoming bradycardic to the 30s cardiolgy was consulted. The patient was started on ASA 325 daily, Lipitor 80 daily, and meclizine 10 daily. He was monitored on telemetry and no arrhytmias were detected. His dizziness resolved. The patient was discharged home with instructions to follow up closely with cardiology as an outpatient in order to obtain a stress test and holter monitor. During his hospitalization the patient was also noted to have a mildly elevated CPK and was instructed to drink plenty of fluids. He was also informed of the need to follow up with a PCP in order to start Statin therapy as his 10 year CAD risk was 8.5%. We did not start a statin on discharge because of the elevated CPK. Date of Discharge: 05/08/19 Minutes to complete discharge: 40 Discharge Summary Problems reviewed: Yes Reason For Visit: ATAXIA Condition: Improved - Instructions Diet, Activity, Other Instructions: You were in the hospital because you had 4 days of dizziness while walking. We did imaging of the blood vessels in your head and neck to make sure you did not have any blood clots or strokes. An ultrasound of you neck did not reveal any large blockages, and CT/ MRI of your brain did not show any evidence of strokes. We also placed you on a heart monitor which showed your heart beat was very slow but did not show any arrhythmias. You will need to follow up very closely with a ice cream maker as an outpatient. You need a stress test for your heart and you also need a holter monitor. This will measure your heart for a longer period of time to catch any arrhythmias if they happen. While in the hospital we also checked your labs, which were overall normal however we noted your cholesterol was on the higher side. You also had an elevated CPK, which is an enzyme in your blood that indicates muscle damage, if it is too high it can cause kidney damage. It is important to drink a lot of water, around 4 liters per day so that you can clear out the CPK enzyme. You will also need to start a statin, a medication for your cholesterol, however this should be done once your CPK enzyme has come down. Please continue to take all your multi vitamins as you were before. Please follow up with the following doctors within 1 week of leaving the hospital: - Dr. Lew, the ice cream maker, to get the holter monitor and follow up about your slow heart beat - Dr. Dinh, a primary care doctor, to follow up about your CPK enzyme level and to discuss starting Lipitor 40mg, a statin you need to take for your cholesterol. You should also have your primary care doctor repeat your cholesterol levels and liver function tests. - Dr. Jauregui, the neurologist who saw you in the hospital to follow up about your change in gait/ dizziness symptoms If you experience chest pains, shortness of breath, increased dizziness, change in your balance, change in sensation of your legs or arms, please come to the Emergency Department immediately. Referrals: Silvino Dinh MD [Staff Physician] - 1 Week Dheeraj Lew MD [Staff Physician] - 1 Week Juma Jauregui DO [Staff Physician] - 1 Week Disposition: HOME - Home Medications Comprehensive Discharge Medication List: Ambulatory Orders [place]-3 Fatty Acids/Fish Oil [Fish Oil 1,000 mg Capsule] 2 cap PO DAILY This patient is new to me today: Yes Date on this admission: 05/08/19 Emergency Visit: No Critical Care patient: No - Discharge Referral Referred to [facility] Med P.C.: No ATTENDING PHYSICIAN STATEMENT I saw and evaluated the patient. I reviewed the resident's note and discussed the case with the resident. I agree with the resident's findings and plan as documented. SUBJECTIVE: OBJECTIVE: ASSESSMENT AND PLAN:
== END 2019-04-29 10:30 | disposition home or self-care (01) | DRG 111 ==
LOC: JER 08:55 → JERBED 12:29 → J4W 16:22
PROVIDERS: ADMIT Internal Medicine; ATTEND Internal Medicine
DX: R42 Dizziness and giddiness (principal); R00.1 Bradycardia, unspecified; M62.82 Rhabdomyolysis; F17.210 Nicotine dependence, cigarettes, uncomplicated; E78.5 Hyperlipidemia, unspecified; I44.0 Atrioventricular block, first degree
CPT/HCPCS: 36415; 70450-TC; 70551-TC; 71045-TC-FY; 80053; 80307; 81003; 82465; 82550; 82553; 83036; 83718; 83721; 83735; 84100; 84443; 84478; 84484; 85025; 85610; 86850; 86900; 86901; 93005; 93010; 93306-TC; 93880-TC; 99285-25; J1644; J7030; Q2036

== ENCOUNTER 2020-07-08 07:59 | Emergency (ER) | payer OTHER ==
[2020-07-08 08:10] VITALS: PULSE 80; BMI 23.8
[2020-07-08 08:52] VITALS: BP 157/97; TEMP 98.3
[2020-07-08] MEDS ORDERED: FOLIC ACID INJECTION - 1 MG, THIAMINE HCL 100 MG, MULTIVIT INJECTION ADULT 10 ML in SOD... IVPB ONE (08:54)
[2020-07-08] MEDS ORDERED: MECLIZINE HCL 25 MG TABLET (FP) PO ONE (08:54)
[2020-07-08] MEDS ORDERED: MECLIZINE HCL 25 MG TABLET (FP) ONE (08:58)
[2020-07-08 09:00] LABS: BASO % 0.7 % (0-2.0); EOS % 2.3 % (0-4.5); HEMATOCRIT 45.1 % (35.4-49); HEMOGLOBIN 15.3 GM/dL (11.7-16.9); LYMPH % 30.7 % (8-40); MCH 29.9 pg (25.7-33.7); MCHC 33.9 g/dl (32.0-35.9); MEAN CELL VOLUME 88.3 fl (80-96); MEAN PLT VOLUME 9.1 fl (7.5-11.1); MONO % 10.4 % (3.8-10.2); NEUT % 55.9 % (42.8-82.8); PLATELET COUNT 140 K/MM3 (134-434); RBC 5.11 M/mm3 (4.00-5.60); RDW 14.7 % (11.9-15.9); WHITE BLOOD COUNT 5.6 K/mm3 (4.0-10.0)
[2020-07-08 09:08] LABS: INR 0.97 (0.83-1.09); PROTHROMBIN TIME (PATIENT) 11.7 SEC (9.7-13.0)
[2020-07-08 09:18] LABS: POTASSIUM 3.6 mmol/L (3.5-5.1)
[2020-07-08 09:20] LABS: ALBUMIN 3.5 g/dl (3.4-5.0); CALCIUM 8.9 mg/dL (8.5-10.1)
[2020-07-08 09:21] LABS: BLOOD UREA NITROGEN 13.2 mg/dL (7-18); MAGNESIUM 2.1 mg/dL (1.8-2.4)
[2020-07-08 09:25] LABS: BILIRUBIN,TOTAL 0.4 mg/dL (0.2-1); CREATININE 1.2 mg/dL (0.55-1.3); PHOSPHOROUS 2.8 mg/dL (2.5-4.9); TOT PROT 7.3 g/dl (6.4-8.2)
[2020-07-08 09:26] LABS: EPI CELLS 24 /uL (0-25.1); HYALINE CASTS 2 /uL (0-3.1); PH,URINE 5.5 (5.0-8.0); URINE APPEARANCE Error; URINE BACTERIA 742 /uL (0-1359); URINE BILIRUBIN NEGATIVE (NEGATIVE); URINE COLOR YELLOW; URINE GLUCOSE (UA) NEGATIVE (NEGATIVE); URINE KETONE NEGATIVE (NEGATIVE); URINE LEUK ESTERASE 1+ (NEGATIVE); URINE NITRITE NEGATIVE (NEGATIVE); URINE PROTEIN NEGATIVE (NEGATIVE); URINE RBC 24 /uL (0-23.9); URINE UROBILINOGEN 0.2 mg/dL (0.2-1.0); URINE WBC 69 /uL (0-25.8)
[2020-07-08] MEDS ORDERED: CEPHALEXIN MONOHYDRATE 500 MG CAPSULE (UD) PO ONE (09:37)
[2020-07-08] MEDS ORDERED: CEPHALEXIN MONOHYDRATE 500 MG CAPSULE (UD) ONE (10:11)
== END 2020-07-08 12:02 | disposition home or self-care (01) ==
LOC: JER 07:59
PROC: 3E033GC Introduction of Other Therapeutic Substance into Peripheral Vein, Percutaneous Approach (ICD-10-PCS; principal; 2020-07-08)
DX: R42 Dizziness and giddiness (principal); N30.00 Acute cystitis without hematuria
CPT/HCPCS: 36415; 70450-TC; 80053; 81003; 82962; 83735; 84100; 84484; 85025; 85610; 85730; 87077; 87086; 93005; 93010; 99285-25

== ENCOUNTER 2022-05-28 10:41 | Emergency (ER) | payer OTHER ==
[2022-05-28 11:00] VITALS: TEMP 98.1; BMI 28.0
[2022-05-28] MEDS ORDERED: SODIUM CHLORIDE 0.9% 500 ML INFUS.BAG IV ONE (12:50)
[2022-05-28 13:26] LABS: BASO % 0.9 % (0-2.0); EOS % 1.5 % (0-4.5); HEMATOCRIT 41.8 % (35.4-49); HEMOGLOBIN 13.5 GM/dL (11.7-16.9); LYMPH % 25.9 % (8-40); MCH 28.4 pg (25.7-33.7); MCHC 32.3 g/dl (32.0-35.9); MEAN CELL VOLUME 87.9 fl (80-96); MONO % 11.7 % (3.8-10.2); PLATELET COUNT 137 10^3/uL (134-434); RBC 4.75 M/mm3 (4.00-5.60); RDW 14.9 % (11.9-15.9); WHITE BLOOD COUNT 5.9 K/mm3 (4.0-10.0)
[2022-05-28 13:50] LABS: ALBUMIN 3.1 g/dl (3.4-5.0); CALCIUM 8.7 mg/dL (8.5-10.1)
[2022-05-28 13:51] LABS: BLOOD UREA NITROGEN 12.8 mg/dL (7-18)
[2022-05-28 13:54] LABS: CREATININE 0.9 mg/dL (0.55-1.3)
[2022-05-28 13:55] LABS: BILIRUBIN,TOTAL 0.3 mg/dL (0.2-1); TOT PROT 6.6 g/dl (6.4-8.2)
[2022-05-28] MEDS ORDERED: MECLIZINE HCL 25 MG TABLET (FP) PO ONE (16:46)
[2022-05-28] MEDS ORDERED: MECLIZINE HCL 25 MG TABLET (FP) ONE (17:13)
[2022-05-28 18:25] VITALS: BP 140/81; PULSE 61; RESP 17
== END 2022-05-28 18:29 | disposition home or self-care (01) ==
LOC: JER 10:41
DX: R42 Dizziness and giddiness (principal); M72.0 Palmar fascial fibromatosis [Dupuytren]
CPT/HCPCS: 36415; 70450-TC; 73130-TC-LT-FY; 80053; 84484; 85025; 93005; 93010; 99285-25

== ENCOUNTER 2023-02-05 13:19 | Emergency (ER) | payer OTHER ==
[2023-02-05 13:31] VITALS: BMI 26.4
[2023-02-05] MEDS ORDERED: ACETAMINOPHEN 1000 MG/100 ML BAG IVPB ONE (15:47)
[2023-02-05] MEDS ORDERED: ACETAMINOPHEN INJECTION 100 ML IVPB ONE (16:02)
[2023-02-05 16:29] LABS: BASO % 0.4 % (0-2.0); EOS % 0.9 % (0-4.5); HEMATOCRIT 36.6 % (35.4-49); HEMOGLOBIN 11.6 GM/dL (11.7-16.9); LYMPH % 19.7 % (8-40); MCH 26.7 pg (25.7-33.7); MCHC 31.7 g/dl (32.0-35.9); MEAN CELL VOLUME 84.2 fl (80-96); MEAN PLT VOLUME 9.2 fl (7.5-11.1); MONO % 15.8 % (3.8-10.2); NEUT % 63.2 % (42.8-82.8); PLATELET COUNT 147 10^3/uL (134-434); RBC 4.34 M/mm3 (4.00-5.60); RDW 16.1 % (11.9-15.9); WHITE BLOOD COUNT 8.2 K/mm3 (4.0-10.0)
[2023-02-05 16:37] LABS: INR 1.17 (0.83-1.09); PROTHROMBIN TIME (PATIENT) 13.5 SEC (9.7-13.0)
[2023-02-05 16:40] LABS: ACTIVATED PTT 29.6 SECONDS (25.2-36.5)
[2023-02-05 16:48] LABS: ALBUMIN 2.8 g/dl (3.4-5.0); BLOOD UREA NITROGEN 7.4 mg/dL (7-18); CALCIUM 8.7 mg/dL (8.5-10.1)
[2023-02-05 16:51] LABS: CREATININE 0.8 mg/dL (0.55-1.3)
[2023-02-05 16:53] LABS: BILIRUBIN,TOTAL 0.7 mg/dL (0.2-1)
[2023-02-05] MEDS ORDERED: KETOROLAC TROMETHAMINE 15 MG/ML VIAL IVPUSH ONE (17:45)
[2023-02-05] MEDS ORDERED: KETOROLAC TROMETHAMINE 15 MG/ML VIAL ONE (17:51)
[2023-02-05 18:23] VITALS: TEMP 98.6
[2023-02-05 19:43] VITALS: BP 141/83; PULSE 54; RESP 16
== END 2023-02-05 19:43 | disposition home or self-care (01) ==
LOC: JER 13:19
PROC: 3E033GC Introduction of Other Therapeutic Substance into Peripheral Vein, Percutaneous Approach (ICD-10-PCS; principal; 2023-02-05)
DX: M79.89 Other specified soft tissue disorders (principal)
CPT/HCPCS: 36415; 80053; 85025; 85610; 85730; 87040; 93971-TC; 96374; 96375; 99284-25

== ENCOUNTER 2023-02-12 14:52 | Observation (INO) | payer OTHER ==
[2023-02-12 15:00] VITALS: BMI 25.6
[2023-02-12 15:33] LABS: EOS % 2.4 % (0-4.5); HEMATOCRIT 37.8 % (35.4-49); HEMOGLOBIN 12.1 GM/dL (11.7-16.9); LYMPH % 21.2 % (8-40); MCH 26.9 pg (25.7-33.7); MCHC 32.1 g/dl (32.0-35.9); MEAN CELL VOLUME 83.9 fl (80-96); MEAN PLT VOLUME 8.2 fl (7.5-11.1); MONO % 9.5 % (3.8-10.2); NEUT % 65.9 % (42.8-82.8); PLATELET COUNT 264 10^3/uL (134-434); RBC 4.51 M/mm3 (4.00-5.60); RDW 16.4 % (11.9-15.9); WHITE BLOOD COUNT 7.1 K/mm3 (4.0-10.0)
[2023-02-12 15:43] LABS: INR 1.28 (0.83-1.09); PROTHROMBIN TIME (PATIENT) 14.8 SEC (9.7-13.0)
[2023-02-12 15:46] LABS: ACTIVATED PTT 32.4 SECONDS (25.2-36.5)
[2023-02-12 16:30] LABS: ALBUMIN 2.8 g/dl (3.4-5.0); BILIRUBIN,TOTAL 0.3 mg/dL (0.2-1); BLOOD UREA NITROGEN 14.5 mg/dL (7-18); CALCIUM 9.1 mg/dL (8.5-10.1); POTASSIUM 4.2 mmol/L (3.5-5.1); TOT PROT 7.6 g/dl (6.4-8.2)
[2023-02-13] MEDS ORDERED: KETOROLAC TROMETHAMINE 15 MG/ML VIAL ONE (01:30)
[2023-02-13] MEDS: KETOROLAC TROMETHAMINE 15 MG/ML VIAL IVPUSH PRN ×2 (01:35→08:32)
[2023-02-13 03:49] VITALS: RESP 18
[2023-02-13 09:01] LABS: BASO % 1.2 % (0-2.0); HEMATOCRIT 35.5 % (35.4-49); HEMOGLOBIN 11.9 GM/dL (11.7-16.9); LYMPH % 26.2 % (8-40); MCH 27.3 pg (25.7-33.7); MCHC 33.6 g/dl (32.0-35.9); MEAN CELL VOLUME 81.3 fl (80-96); MEAN PLT VOLUME 7.9 fl (7.5-11.1); MONO % 11.9 % (3.8-10.2); NEUT % 57.7 % (42.8-82.8); PLATELET COUNT 264 10^3/uL (134-434); RBC 4.37 M/mm3 (4.00-5.60); RDW 15.9 % (11.9-15.9); WHITE BLOOD COUNT 6.6 K/mm3 (4.0-10.0)
[2023-02-13 09:04] LABS: POTASSIUM 4.2 mmol/L (3.5-5.1)
[2023-02-13 09:08] LABS: ALBUMIN 2.5 g/dl (3.4-5.0); BLOOD UREA NITROGEN 14.6 mg/dL (7-18); CALCIUM 9.1 mg/dL (8.5-10.1)
[2023-02-13 09:10] LABS: CREATININE 0.8 mg/dL (0.55-1.3); PHOSPHOROUS 2.8 mg/dL (2.5-4.9)
[2023-02-13 09:13] LABS: BILIRUBIN,TOTAL 0.4 mg/dL (0.2-1)
[2023-02-13 09:41] LABS: ERYTHROCYTE SEDIMENTATION RATE 88 mm/hr (0-20)
[2023-02-13] MEDS ORDERED: ENOXAPARIN NA (PORCINE) 40 MG/0.4 ML DISP.SYRIN SQ SCH (10:00)
[2023-02-13 14:42] VITALS: BP 140/88; PULSE 56; TEMP 98.2
== END 2023-02-13 14:45 | disposition home or self-care (01) ==
LOC: JER 14:52 → JERBED 16:46 → J8W 02-13 03:42
PROVIDERS: ADMIT Internal Medicine; ATTEND Internal Medicine
PROC: 3E023GC Introduction of Other Therapeutic Substance into Muscle, Percutaneous Approach (ICD-10-PCS; principal; 2023-02-12)
PROC: 3E0333Z Introduction of Anti-inflammatory into Peripheral Vein, Percutaneous Approach (ICD-10-PCS; 2023-02-12)
DX: M71.22 Synovial cyst of popliteal space [Baker], left knee (principal); I82.409 Acute embolism and thrombosis of unspecified deep veins of unspecified lower extremity; M17.12 Unilateral primary osteoarthritis, left knee; I10 Essential (primary) hypertension; K92.9 Disease of digestive system, unspecified; F17.200 Nicotine dependence, unspecified, uncomplicated
CPT/HCPCS: 36415; 73610-TC-RT-FY; 80053; 83735; 84100; 84484; 85025; 85610; 85651; 85730; 93005; 93010; 93971-TC; 96372; 96374; 99285-25; G0378

== ENCOUNTER 2023-03-20 10:33 | Emergency (ER) | payer OTHER ==
[2023-03-20 10:47] VITALS: BP 178/99; PULSE 68; RESP 16; TEMP 98.1; BMI 24.1
[2023-03-20] MEDS ORDERED: IBUPROFEN 600 MG TABLET (FP) PO ONE (13:59)
== END 2023-03-20 15:35 | disposition home or self-care (01) ==
LOC: JER 10:33 → JERFT 10:33
DX: S80.01XA Contusion of right knee, initial encounter (principal); M54.2 Cervicalgia; R51.9 Headache, unspecified; Y04.0XXA Assault by unarmed brawl or fight, initial encounter
CPT/HCPCS: 70450-TC; 70486-TC; 72125-TC; 72128-TC; 73562-TC-RT-FY; 99284-25